=== PATIENT | male | born 2005 ===

== ENCOUNTER 2024-12-24 07:07 | Outpatient (CLI) | payer OTHER | END 2024-12-24 07:09 | disposition home or self-care (01) | LOC: SONOGRAMA 07:07 | DX: R10.84 Generalized abdominal pain (principal); R10.2 Pelvic and perineal pain ==

== ENCOUNTER → 2024-12-24 08:15 | Outpatient (CLI) | payer OTHER ==
[2024-12-24 09:19] LABS: HEMATOCRIT 47.1 % (39.0-48.0); HEMOGLOBIN 16.6 g/dL (13-16.00); MEAN CELL VOLUME 87.1 fL (80.0-100.00); MEAN CORPUSCULAR HEMOGLOBIN 30.8 pg (27.00-32.0); MEAN CORPUSCULAR HGB CONC 35.3 g/dl (32.0-36.0); PLATELET COUNT 220 K/uL (150-450); RED BLOOD COUNT 5.41 M/uL (4.00-6.00); RED CELL DISTRIBUTION WIDTH 13.1 % (11.5-14.5)
[2024-12-24 09:46] LABS: PH,URINE 5.5 (5.0-8.0); URINE APPEARANCE Clear; URINE BILIRRUBIN Negative (NEGATIVE); URINE BLOOD Negative; URINE COLOR Yellow; URINE GLUCOSE Negative (NEGATIVE); URINE KETONE Negative (NEGATIVE); URINE LEUKOCYTE Negative; URINE NITRATE Negative; URINE PROTEIN Negative (NEGATIVE); URINE UROBILINOGEN 0.2 E.U./dl
[2024-12-24 09:53] LABS: URINE BACTERIA 0 uL (0.0-1933); URINE RBC 0.2 uL (0.0-20.8); URINE WBC 0.4 uL (0.0-23.2)
[2024-12-24 10:43] LABS: ALBUMIN 4.5 gm/dL (3.4-5.0); BILIRUBIN TOTAL 0.91 mg/dL (0.3-1.2); CALCIUM 9.6 mg/dL (8.5-10.1); CHOL HDL RATIO 4.5 (0-5.0); CREATININE SERUM 0.86 mg/dL (0.70-1.30); GFR 112.26; GLOBULINA 3.6 G/DL (2.4-3.5); POTASSIUM 4.08 mEq/L (3.5-5.1); TOTAL PROTEIN 8.1 gm/dL (6.4-8.2); TSH 1.99 uIU/mL (0.358-3.74)
== END | disposition home or self-care (01) ==
LOC: LAB 08:15
DX: N30.00 Acute cystitis without hematuria (principal); E78.49 Other hyperlipidemia; E03.2 Hypothyroidism due to medicaments and other exogenous substances; R73.02 Impaired glucose tolerance (oral); I10 Essential (primary) hypertension; Z11.4 Encounter for screening for human immunodeficiency virus [HIV]